=== PATIENT | male | born 1950 | race Caucasian/White ===

== ENCOUNTER 2018-02-26 09:29 | Day surgery (SDC) | payer MEDICARE ==
[~2018-02-26] VITALS: Ht 177.8 cm; Wt 77.6 kg
[~2018-02-26 09:29] MED LIST: ASCO500 PO; ASPI325EC PO; ATEN50; ATOR40TA PO; CHOL10002 PO; CYCL10 PO; DAILY VALUE1 EACH PO; FISH OIL 1,0001 EAC1 PO; GABA100 PO; HYDACE10A; MELO7.5 PO; METO25ER PO; OXYACE5T PO; OXYC15ER PO; TRAM50; UBID100
== END 2018-02-26 11:40 | disposition home or self-care (01) ==
LOC: ORSCMMR 09:29 → ORD 11:00 → ORSCMMR 11:40
PROVIDERS: Internal Medicine Gastroenterology
PROC: 0DBE8ZX Excision of Large Intestine, Via Natural or Artificial Opening Endoscopic, Diagnostic (ICD-10-PCS; principal; 2018-02-26 11:00)
DX: R19.5 Other fecal abnormalities (principal); K63.89 Other specified diseases of intestine; K63.5 Polyp of colon; D12.8 Benign neoplasm of rectum; I10 Essential (primary) hypertension; E78.00 Pure hypercholesterolemia, unspecified; Z79.899 Other long term (current) drug therapy; Z79.82 Long term (current) use of aspirin
CPT/HCPCS: 88305; J7120

== ENCOUNTER → 2019-02-06 | Outpatient (CLI) | payer MEDICARE | LOC: LAB 19:03 → LAB SHORT 19:03 | DX: R50.9 Fever, unspecified (principal) | CPT/HCPCS: 87081; 87430 ==

== ENCOUNTER → 2019-09-05 | Outpatient (CLI) | payer MEDICARE | END | disposition home or self-care (01) | LOC: LAB SHORT 14:41 → PLD 14:41 | DX: L72.0 Epidermal cyst (principal) | CPT/HCPCS: 88304; 88305 ==

== ENCOUNTER 2022-02-09 11:05 | Day surgery (SDC) | payer MEDICARE ==
[~2022-02-09] VITALS: Ht 177.8 cm; Wt 79.4 kg
[2022-02-09] MEDS ORDERED: ZINC15 PO (11:49)
[2022-02-09] MEDS ORDERED: MIRALAX17 GM PO (11:49)
--- NOTE | 2022-02-09 12:40 | NUR ---
02/09/22 1239 Mich Cobb 2% LIDOCAINE WITH EPI 1:100,000 DILUTED 1:1 WITH 0.9% INJ NACL TO ACHIEVE SOLUTION OF 1% LIDOCAINE WITH EPI 1:200,000.
--- NOTE | 2022-02-09 13:21 | NUR ---
02/09/22 132[address] Brantley, give all of IV bag prior to discharge.
== END 2022-02-09 13:50 | disposition home or self-care (01) ==
LOC: ORSCSDS 11:05
PROVIDERS: Otolaryngology
PROC: 0CUV0JZ Supplement Left Vocal Cord with Synthetic Substitute, Open Approach (ICD-10-PCS; principal; 2022-02-09 13:00)
DX: J38.01 Paralysis of vocal cords and larynx, unilateral (principal); R49.0 Dysphonia; R13.10 Dysphagia, unspecified; I10 Essential (primary) hypertension; I25.10 Atherosclerotic heart disease of native coronary artery without angina pectoris; E78.5 Hyperlipidemia, unspecified; Z87.891 Personal history of nicotine dependence; Z79.899 Other long term (current) drug therapy; Z79.82 Long term (current) use of aspirin
CPT/HCPCS: C1713; J1100; J2250; J2405; J2704; J3010

== ENCOUNTER 2022-07-06 09:42 | Day surgery (SDC) | payer MEDICARE ==
[~2022-07-06] VITALS: Ht 177.8 cm; Wt 75.1 kg
[~2022-07-06 09:42] MED LIST changes: +MIRALAX17 GM PO; +ZINC15 PO
--- NOTE | 2022-07-06 12:12 | NUR ---
07/06/22 1212 Latrice Dias PT RESTING IN RECLINER, SYED AT SIDE. NO QUESTIONS OR CONCERNS AT THIS TIME. WILL GIVE REPORT TO J LUIS ROCHA AND J LUIS KELLER.
== END 2022-07-06 12:32 | disposition home or self-care (01) ==
LOC: ORSCSDS 09:42
PROVIDERS: Otolaryngology
PROC: 0CP Mouth and Throat, Removal (ICD-10-PCS; principal; 2022-07-06 11:00)
DX: R49.0 Dysphonia (principal); J38.00 Paralysis of vocal cords and larynx, unspecified; I10 Essential (primary) hypertension; E78.5 Hyperlipidemia, unspecified; I25.2 Old myocardial infarction; Z87.891 Personal history of nicotine dependence; Z79.899 Other long term (current) drug therapy; Z79.82 Long term (current) use of aspirin
CPT/HCPCS: J2250; J2704; J3010; J7120

== ENCOUNTER → 2023-05-03 | Outpatient (CLI) | payer MEDICARE | END | disposition home or self-care (01) | LOC: LAB SHORT 14:48 → LAB 14:48 | DX: M25.541 Pain in joints of right hand (principal); M25.542 Pain in joints of left hand | CPT/HCPCS: 84550 ==